=== PATIENT | male | born 2000 | race African-American/Black ===

== ENCOUNTER 2021-01-21 08:00 | Emergency (ER) | payer OTHER ==
[~2021-01-21] VITALS: Ht 187.9 cm; Wt 99.8 kg
== END 2021-01-21 12:44 | disposition home or self-care (01) ==
LOC: ED 08:00
DX: S93.401A Sprain of unspecified ligament of right ankle, initial encounter (principal); F17.200 Nicotine dependence, unspecified, uncomplicated; W22.8XXA Striking against or struck by other objects, initial encounter; Y93.89 Activity, other specified; Y92.89 Other specified places as the place of occurrence of the external cause; Y99.8 Other external cause status